=== PATIENT | female | born 1975 ===

== ENCOUNTER 2025-08-26 06:25 | Day surgery (SDC) | payer BC, SELFPAY | END 2025-08-26 10:39 | disposition home or self-care (01) | LOC: GI 06:25 | PROVIDERS: ATTENDING PHYSICIAN Internal Medicine Gastroenterology | DX: Z12.11 Encounter for screening for malignant neoplasm of colon (principal); K64.9 Unspecified hemorrhoids; D12.0 Benign neoplasm of cecum | CPT/HCPCS: 45380; 88305 ==